=== PATIENT | male | born 1955 | race Caucasian/White ===

== ENCOUNTER 2020-03-31 11:13 | Emergency (ER) | payer OTHER ==
[2020-03-31 11:46] VITALS: BMI 30.4
[2020-03-31] MEDS ORDERED: CASIRIVIMAB (REGN10933) 1,200 MG, IMDEVIMAB (REGN10987) 1,200 MG in SODIUM CHLORIDE 230 ML IVPB ONE (12:03)
[2020-03-31 12:34] LABS: HEMATOCRIT 40.8 % (35.4-49); HEMOGLOBIN 13.8 GM/dL (11.7-16.9); MCH 30.2 pg (25.7-33.7); MCHC 33.7 g/dl (32.0-35.9); MEAN CELL VOLUME 89.7 fl (80-96); MEAN PLT VOLUME 9.8 fl (7.5-11.1); PLATELET COUNT 124 K/MM3 (134-434); RBC 4.56 M/mm3 (4.00-5.60); RDW 13.3 % (11.9-15.9); WHITE BLOOD COUNT 3.7 K/mm3 (4.0-10.0)
[2020-03-31 12:59] LABS: CREATININE 0.8 mg/dL (0.55-1.3)
[2020-03-31 15:15] VITALS: BP 129/84; PULSE 52; TEMP 98.6
== END 2020-03-31 15:51 | disposition home or self-care (01) ==
LOC: JER 11:13
DX: U07.1 COVID-19 (principal)
CPT/HCPCS: 36415; 80048; 85027; 99284-25; M0243; Q0243